=== PATIENT | male | born 1980 | race African-American/Black ===

== ENCOUNTER 2018-05-31 14:39 | Emergency (ER) | payer OTHER ==
--- NOTE | 2018-05-31 15:05 | EDM.PDOC ---
ED HPI GENERAL MEDICAL PROBLEM - General Chief Complaint: Back Pain or Injury Stated Complaint: PAIN Time Seen by Provider: 05/31/18 15:04 Source of Information: Reports: Patient History Limitations: Reports: No Limitations - History of Present Illness INITIAL COMMENTS - FREE TEXT/NARRATIVE: HISTORY AND PHYSICAL: History of present illness: Patient is a 37-year-old male here with complaint of numbness of his arms and legs. He states he injury his back about 1 year ago, he had the numbness in his arms and legs then. Recently his back has been hurting him but denies any recent injury or trauma. He states at night he will have numbness on the lateral leg and arm that he sleeps on for the past 5 days. States it goes back and forth between the left and right side depending on how he is sleeping. He does not currently have any numbness at this time. He denies any weakness, saddle anesthesia, loss of bowel or bladder control, fevers, chills. He was seeing provided in [place] for his back, has not established with provider in [place] yet. He did have an x-ray of his back when the injury occurred and patient is wanting to have an MRI done. Review of systems: As per history of present illness and below otherwise all systems reviewed and negative. Past medical history: As per history of present illness and as reviewed below otherwise noncontributory. Surgical history: As per history of present illness and as reviewed below otherwise noncontributory. Social history: No reported history of drug or alcohol abuse. Family history: As per history of present illness and as reviewed below otherwise noncontributory. Physical exam: General: Patient sitting comfortably in no acute distress and nontoxic appearing HEENT: Atraumatic, normocephalic, pupils reactive, negative for conjunctival pallor or scleral icterus, mucous membranes moist, throat clear, neck supple, nontender, trachea midline. No meningeal signs. Lungs: Clear to auscultation, breath sounds equal bilaterally, chest nontender. Heart: S1S2, regular, negative for clicks, rubs, or overt murmur. Abdomen: Soft, nondistended, nontender. Negative for masses or hepatosplenomegaly. Negative for costovertebral tenderness. Pelvis: Stable nontender. Genitourinary: Deferred. Rectal: Deferred. Spine: No vertebral tenderness or step offs to palpation. Minimal lumbar paraspinal tenderness to palpation bilaterally. Extremities: Atraumatic, negative for cords or calf pain. Neurovascular unremarkable. Neuro: Awake, alert, oriented. Cranial nerves II through XII unremarkable. Cerebellum unremarkable. Motor and sensory unremarkable throughout. Exam nonfocal. Notes: Discussed that lumbar MRI is not necessary at this time in the ED and to follow up with primary care provider. We also discussed that a head CT would not be necessary as his numbness is not unilateral and it comes and goes depending on which side he sleeps on and is not currently having any numbness which would not be a typical presentation of brain lesion. He was advised to return if he develops new or worsening symptoms. Diagnostics: None Therapeutics: None Prescriptions: None Impression: Paresthesias Plan: 1. Motrin or tylenol as needed for back pain 2. Follow up with primary care provider, please call number provided to schedule an appointment 3. Return to ED as needed as discussed Definitive disposition and diagnosis as appropriate pending reevaluation and review of above. Lower Back Pain Score (Numeric/FACES): 5 - Related Data Allergies Allergy/AdvReac Type Severity Reaction Status Date / Time No Known Allergies Allergy Verified 05/31/18 14:54 Home Meds: Home Meds . [No Known Home Meds] 05/31/18 [History] Past Medical History - Past Health History Medical/Surgical History: Denies Medical/Surgical History Social & Family History - Tobacco Use Smoking Status *Q: Never Smoker - Caffeine Use Caffeine Use: Reports: None - Recreational Drug Use Recreational Drug Use: No ED ROS GENERAL - Review of Systems Review Of Systems: ROS reveals no pertinent complaints other than HPI. ED EXAM,LOWER BACK PAIN/INJURY - Physical Exam Exam: See Below (see dictation) Course - Vital Signs Last Recorded V/S: Last Vital Signs Temp 98.1 F 05/31/18 14:50 Pulse 92 05/31/18 14:50 Resp 18 05/31/18 14:50 BP 103/70 05/31/18 14:50 Pulse Ox 98 05/31/18 14:50 Departure - Departure Time of Disposition: 15:06 Disposition: Home, Self-Care 01 Condition: Good Clinical Impression: Paresthesia, Lumbar back pain - Discharge Information Referrals: PCP,None [Primary Care Provider] - Forms: ED Department Discharge Additional Instructions: The following information is given to patients seen in the emergency department who are being discharged to home. This information is to outline your options for follow-up care. We provide all patients seen in our emergency department with a follow-up referral. The need for follow-up, as well as the timing and circumstances, are variable depending upon the specifics of your emergency department visit. If you don't have a primary care physician on staff, we will provide you with a referral. We always advise you to contact your personal physician following an emergency department visit to inform them of the circumstance of the visit and for follow-up with them and/or the need for any referrals to a consulting specialist. The emergency department will also refer you to a specialist when appropriate. This referral assures that you have the opportunity for follow-up care with a specialist. All of these measure are taken in an effort to provide you with optimal care, which includes your follow-up. Under all circumstances we always encourage you to contact your private physician who remains a resource for coordinating your care. When calling for follow-up care, please make the office aware that this follow-up is from your recent emergency room visit. If for any reason you are refused follow-up, please contact the [facility] Emergency Department at and asked to speak to the emergency department charge nurse. [facility] [address] [place] [id number] [address] [address] 1. Motrin or tylenol as needed for back pain 2. Follow up with primary care provider, please call number provided to schedule an appointment 3. Return to ED as needed as discussed
== END 2018-05-31 15:19 | disposition home or self-care (01) ==
LOC: MW.ED 14:39
DX: M54.5 Low back pain (principal); R20.2 Paresthesia of skin
CPT/HCPCS: 99282; 99283

== ENCOUNTER 2018-09-22 11:30 | Emergency (ER) | payer SELFPAY ==
[2018-09-22] MEDS ORDERED: Sodium Chloride 0.9% 1,000 ML IV ONE (11:40)
[2018-09-22] MEDS ORDERED: Pantoprazole 40 MG Vial IVPUSH ONE (11:41)
[2018-09-22] MEDS ORDERED: Ondansetron 4 MG/2 ML SDV IVPUSH ONE (11:41)
[2018-09-22] MEDS ORDERED: Ketorolac 30 MG/ML SDV IVPUSH ONE (11:41)
--- NOTE | 2018-09-22 11:41 | EDM.PDOC ---
ED HPI GENERAL MEDICAL PROBLEM - General Chief Complaint: Abdominal Pain Stated Complaint: STOMACH PAIN Time Seen by Provider: 09/22/18 11:40 Source of Information: Reports: Patient - History of Present Illness INITIAL COMMENTS - FREE TEXT/NARRATIVE: HISTORY AND PHYSICAL: History of present illness: [Patient has had low-grade 3 out of 10 nonradiating diffuse abdominal pain bloating sensation over the last 2-3 weeks no fever vomiting chills sweats mild nausea occasionally pain increases with any type of food intake ] Review of systems: As per history of present illness and below otherwise all systems reviewed and negative. Past medical history: As per history of present illness and as reviewed below otherwise noncontributory. Surgical history: As per history of present illness and as reviewed below otherwise noncontributory. Social history: No reported history of drug or alcohol abuse. Family history: As per history of present illness and as reviewed below otherwise noncontributory. Physical exam: HEENT: Atraumatic, normocephalic, pupils reactive, negative for conjunctival pallor or scleral icterus, mucous membranes moist, throat clear, neck supple, nontender, trachea midline. Lungs: Clear to auscultation, breath sounds equal bilaterally, chest nontender. Heart: S1S2, regular, negative for clicks, rubs, or JVD. Abdomen: Soft, nondistended, nontender. Negative for masses or hepatosplenomegaly. Negative for costovertebral tenderness. Pelvis: Stable nontender. Genitourinary: Deferred. Rectal: Deferred. Extremities: Atraumatic, negative for cords or calf pain. Neurovascular unremarkable. Neuro: Awake, alert, oriented. Cranial nerves II through XII unremarkable. Cerebellum unremarkable. Motor and sensory unremarkable throughout. Exam nonfocal. Diagnostics: [CBC CMP and lipase UA ]Ultrasound right upper quadrant Abdomen flat and upright Therapeutics: [Normal saline Zofran Toradol Reglan [place] diet Regular Simethicone Follow-up with general surgery consider HIDA sc ] Impression: [ abdominal pain ] Definitive disposition and diagnosis as appropriate pending reevaluation and review of above. upper abd Pain Score (Numeric/FACES): 8 - Related Data Allergies Allergy/AdvReac Type Severity Reaction Status Date / Time No Known Allergies Allergy Verified 09/22/18 11:39 Home Meds: Home Meds . [No Known Home Meds] 05/31/18 [History] Past Medical History - Past Health History Medical/Surgical History: Denies Medical/Surgical History Social & Family History - Caffeine Use Caffeine Use: Reports: None ED ROS GENERAL - Review of Systems Review Of Systems: See Below ED EXAM, GENERAL - Physical Exam Exam: See Below Course - Vital Signs Last Recorded V/S: Last Vital Signs Temp 97.6 F 09/22/18 11:39 Pulse 83 09/22/18 11:39 Resp 18 09/22/18 11:39 BP 116/73 09/22/18 11:39 Pulse Ox 98 09/22/18 11:39 - Orders/Labs/Meds Labs: Laboratory Tests 09/22/18 09/22/18 09/22/18 Range/Units 11:50 11:51 11:51 WBC 6.93 (4.0-11.0) K/uL RBC 4.93 (4.50-5.90) M/uL Hgb 14.0 (13.0-17.0) g/dL Hct 41.3 (38.0-50.0) % MCV 83.8 (80.0-98.0) fL MCH 28.4 (27.0-32.0) pg MCHC 33.9 (31.0-37.0) g/dL RDW Std Deviation 38.9 (28.0-62.0) fl RDW Coeff of Samia 13 (11.0-15.0) % Plt Count 226 (150-400) K/uL MPV 10.00 (7.40-12.00) fL Neut % (Auto) 42.8 L (48.0-80.0) % Lymph % (Auto) 39.7 (16.0-40.0) % [place] % (Auto) 8.5 (0.0-15.0) % Eos % (Auto) 8.9 H (0.0-7.0) % Baso % (Auto) 0.1 (0.0-1.5) % Neut # (Auto) 3.0 (1.4-5.7) K/uL Lymph # (Auto) 2.8 H (0.6-2.4) K/uL [place] # (Auto) 0.6 (0.0-0.8) K/uL Eos # (Auto) 0.6 (0.0-0.7) K/uL Baso # (Auto) 0.0 (0.0-0.1) K/uL Nucleated RBC % 0.0 /100WBC Nucleated RBCs # 0 K/uL Sodium 140 (136-148) mmol/L Potassium 4.1 (3.5-5.1) mmol/L Chloride 105 (98-107) mmol/L Carbon Dioxide 26.0 (21.0-32.0) mmol/L BUN 9 (7.0-18.0) mg/dL Creatinine 1.0 (0.8-1.3) mg/dL Est Cr Clr Drug Dosing TNP Estimated GFR (MDRD) > 60.0 ml/min Glucose 101 (74-106) mg/dL Calcium 9.5 (8.5-10.1) mg/dL Total Bilirubin 0.9 (0.2-1.0) mg/dL AST 72 H (15-37) IU/L ALT 196 H (14-63) IU/L Alkaline Phosphatase 541 H (46-116) U/L Total Protein 7.8 (6.4-8.2) g/dL Albumin 3.3 L (3.4-5.0) g/dL Globulin 4.5 H (2.6-4.0) g/dL Albumin/Globulin Ratio 0.7 L (0.9-1.6) Lipase 96 (73-393) U/L Urine Color YELLOW Urine Appearance CLEAR Urine pH 7.0 (5.0-8.0) Ur Specific [place] 1.010 (1.001-1.035) Urine Protein NEGATIVE (NEGATIVE) mg/dL Urine Glucose (UA) NEGATIVE (NEGATIVE) mg/dL Urine Ketones NEGATIVE (NEGATIVE) mg/dL Urine Occult Blood NEGATIVE (NEGATIVE) Urine Nitrite NEGATIVE (NEGATIVE) Urine Bilirubin NEGATIVE (NEGATIVE) Urine Urobilinogen 0.2 (<2.0) EU/dL Ur Leukocyte Esterase NEGATIVE (NEGATIVE) Meds: Medications Discontinued Medications Generic Name Dose Route Start Last Admin Trade Name Freq PRN Reason Stop Dose Admin Sodium Chloride 1,000 mls @ 999 mls/hr 09/22/18 11:40 09/22/18 11:59 Normal Saline IV 09/22/18 12:40 999 mls/hr STAT ONE Administration Sodium Chloride Confirm 09/22/18 11:51 Normal Saline Administered 09/22/18 11:52 Dose 20 mls @ as directed .ROUTE .STK-MED ONE Ketorolac Tromethamine 30 mg 09/22/18 11:41 09/22/18 12:02 Toradol IVPUSH 09/22/18 11:42 30 mg ONETIME ONE Administration Metoclopramide HCl 10 mg 09/22/18 12:53 Reglan IV 09/22/18 12:54 ONETIME ONE Ondansetron HCl 8 mg 09/22/18 11:41 09/22/18 12:01 Zofran IVPUSH 09/22/18 11:42 8 mg ONETIME ONE Administration Pantoprazole Sodium 80 mg 09/22/18 11:41 09/22/18 12:02 Protonix Iv IVPUSH 09/22/18 11:42 80 mg .BOLUS ONE Administration Simethicone 160 mg 09/22/18 12:53 Simethicone PO 09/22/18 12:54 ONETIME ONE Departure - Departure Time of Disposition: 12:56 Disposition: Home, Self-Care 01 Condition: Good Clinical Impression: Abdominal pain - Discharge Information Referrals: PCP,Unknown [Primary Care Provider] - Forms: ED Department Discharge Additional Instructions: Medication as prescribed Return if symptoms persist or worsen Follow-up with general surgery, call phone number below to schedule appropriate follow-up for consideration of HIDA navya [facility] - General Surgery [address], [address] [place] [address] The following information is given to patients seen in the emergency department who are being discharged to home. This information is to outline your options for follow-up care. We provide all patients seen in our emergency department with a follow-up referral. The need for follow-up, as well as the timing and circumstances, are variable depending upon the specifics of your emergency department visit. If you don't have a primary care physician on staff, we will provide you with a referral. We always advise you to contact your personal physician following an emergency department visit to inform them of the circumstance of the visit and for follow-up with them and/or the need for any referrals to a consulting specialist. The emergency department will also refer you to a specialist when appropriate. This referral assures that you have the opportunity for follow-up care with a specialist. All of these measure are taken in an effort to provide you with optimal care, which includes your follow-up. Under all circumstances we always encourage you to contact your private physician who remains a resource for coordinating your care. When calling for follow-up care, please make the office aware that this follow-up is from your recent emergency room visit. If for any reason you are refused follow-up, please contact the [facility] emergency department at and asked to speak to the emergency department charge nurse.
[2018-09-22] MEDS ORDERED: Sodium Chloride 0.9% 20 ML ONE (11:51)
[2018-09-22 12:25] LABS: CHLORIDE,CL 105 mmol/L (98-107); SODIUM,NA 140 mmol/L (136-148)
--- NOTE | 2018-09-22 12:49 | US ---
EXAMINATION: Right upper quadrant ultrasound HISTORY: Pain COMPARISON: None TECHNIQUE: Grayscale and color Doppler imaging obtained of the right upper quadrant. FINDINGS: The visualized pancreas appears normal. The liver is normal in contour and echotexture without a focal hepatic mass. The main portal triads appear echogenic. The gallbladder wall thickness is normal. No pericholecystic fluid or shadowing gallstones. Common bile duct is not well characterized. Right kidney measures at least 8.8 cm [id number] without evidence of hydronephrosis. IMPRESSION: 1. Common bile duct is not well characterized. 2. There is shadowing within the region of the central biliary tracks, this can be seen with pneumobilia.
--- NOTE | 2018-09-22 12:50 | CR ---
EXAMINATION: Abdomen HISTORY: Pain COMPARISON: None TECHNIQUE: AP and upright views FINDINGS: There is no free air under the diaphragm. There is a nonobstructive bowel gas pattern. No organomegaly or abnormal calcifications. Visualized osseous structures appear normal. IMPRESSION: Unremarkable abdominal films.
[2018-09-22] MEDS ORDERED: Metoclopramide 10 MG/2 ML SDV IV ONE (12:53)
[2018-09-22] MEDS ORDERED: Simethicone 80 MG Tab.Chew PO ONE (12:53)
== END 2018-09-22 13:52 | disposition home or self-care (01) ==
LOC: MW.ED 11:30
DX: R10.10 Upper abdominal pain, unspecified (principal)
CPT/HCPCS: 36415; 74019; 76705; 80053; 81003; 83690; 85025; 96361; 96374; 96375; 99284; A9270; C9113; J1885; J2405; J2765; J7040

== ENCOUNTER 2018-10-02 08:27 | Observation (INO) | payer SELFPAY ==
[2018-10-02] MEDS ORDERED: Ketorolac 30 MG/ML SDV IVPUSH ONE (08:58)
[2018-10-02] MEDS ORDERED: Sodium Chloride 0.9% 1,000 ML IV ONE (08:58)
[2018-10-02] MEDS ORDERED: Ondansetron 4 MG/2 ML SDV IVPUSH ONE (08:58)
[2018-10-02 09:21] LABS: CHLORIDE,CL 102 mmol/L (98-107); SODIUM,NA 137 mmol/L (136-148)
[2018-10-02] MEDS ORDERED: Pantoprazole 40 MG Vial IVPUSH ONE (10:07)
[2018-10-02] MEDS ORDERED: Water For Injection, Sterile 20 ML ONE (10:11)
[2018-10-02] MEDS ORDERED: Sodium Chloride 0.9% 1,000 ML IV SCH (10:15)
--- NOTE | 2018-10-02 11:59 | US ---
INDICATION: Abdominal pain COMPARISON: none TECHNIQUE: 2D castillo scale imaging and color Doppler analysis was performed of the right upper quadrant. FINDINGS: The gallbladder appears of normal size. There is a trace amount of sludge within the gallbladder neck. There is no evidence of edema within the gallbladder wall. The gallbladder wall measures 3 mm in thickness. The common bile duct is poorly visualized. There is a oval cystic structure within the saray hepatis. I wonder if the patient has a possible choledochal cyst. Within the liver there is acoustic shadowing associated with the bile ducts which suggests probable pneumobilia. The right kidney measures 9.3 cm in length. There is no evidence of a stone or hydronephrosis within the right kidney. IMPRESSION: No indeterminate cystic structure within the saray hepatis which may indicate a choledochal cyst. There is also shadowing within the portal triads of the liver suggesting pneumobilia. These changes could be characterized further with a MRCP exam or contrast enhanced CT scan of the liver. Dictated by Anselmo Patrick MD @ Oct 02 2018 11:57AM Signed by Dr. Anselmo Patrick @ Oct 02 2018 11:57AM
--- NOTE | 2018-10-02 12:48 | EDM.PDOC ---
ED HPI GENERAL MEDICAL PROBLEM - General Chief Complaint: Abdominal Pain Stated Complaint: PAIN IN CHEST AND SIDE Time Seen by Provider: 10/02/18 12:46 Source of Information: Reports: Patient - History of Present Illness INITIAL COMMENTS - FREE TEXT/NARRATIVE: HISTORY AND PHYSICAL: History of present illness: []Pt presents with right upper quadrant pain He is been in previously with ultrasound and CT ultimately receiving HIDA scan with Dr. Levin, or truly HIDA scan did not reveal any answers hence I have consult of Dr. Hylton who is on-call today he has recommended repeat ultrasound and possibly MRCP No fever nausea vomiting chills sw eats Review of systems: As per history of present illness and below otherwise all systems reviewed and negative. Past medical history: As per history of present illness and as reviewed below otherwise noncontributory. Surgical history: As per history of present illness and as reviewed below otherwise noncontributory. Social history: No reported history of drug or alcohol abuse. Family history: As per history of present illness and as reviewed below otherwise noncontributory. Physical exam: HEENT: Atraumatic, normocephalic, pupils reactive, negative for conjunctival pallor or scleral icterus, mucous membranes moist, throat clear, neck supple, nontender, trachea midline. Lungs: Clear to auscultation, breath sounds equal bilaterally, chest nontender. Heart: S1S2, regular, negative for clicks, rubs, or JVD. Abdomen: Soft, nondistended, nontender. Negative for masses or hepatosplenomegaly. Negative for costovertebral tenderness. Pelvis: Stable nontender. Genitourinary: Deferred. Rectal: Deferred. Extremities: Atraumatic, negative for cords or calf pain. Neurovascular unremarkable. Neuro: Awake, alert, oriented. Cranial nerves II through XII unremarkable. Cerebellum unremarkable. Motor and sensory unremarkable throughout. Exam nonfocal. Diagnostics: [CBC CMP lipase ] Therapeutics: [ also saline Zofran Toradol ] Impression: [ right upper quadrant pain ] Definitive disposition and diagnosis as appropriate pending reevaluation and review of above. Upper Abdominal Pain Score (Numeric/FACES): 10 - Related Data Allergies Allergy/AdvReac Type Severity Reaction Status Date / Time No Known Allergies Allergy Verified 10/02/18 08:35 Home Meds: Home Meds Metoclopramide HCl [Reglan] 10 mg PO TID PRN 10/02/18 [History] Simethicone [Gas Relief] 120 mg PO QID PRN 10/02/18 [History] Past Medical History - Past Health History Medical/Surgical History: Denies Medical/Surgical History - Infectious Disease History Infectious Disease History: Reports: None Social & Family History - Family History Family Medical History: Noncontributory - Tobacco Use Smoking Status *Q: Never Smoker - Caffeine Use Caffeine Use: Reports: None - Recreational Drug Use Recreational Drug Use: No ED ROS GENERAL - Review of Systems Review Of Systems: See Below ED EXAM, GENERAL - Physical Exam Exam: See Below Course - Vital Signs Last Recorded V/S: Last Vital Signs Temp 98.9 F 10/02/18 08:36 Pulse 101 H 10/02/18 11:27 Resp 16 10/02/18 11:27 BP 100/63 10/02/18 11:27 Pulse Ox 97 10/02/18 11:27 - Orders/Labs/Meds Orders: Active Orders 24 hr Category Date Time Status Abdomen wo Cont [MR] Stat Exams 10/02/18 12:29 Ordered Sodium Chloride 0.9% [Normal Saline] 1,000 ml Med 10/02/18 10:15 Active IV STAT Medication Orders Sodium Chloride (Normal Saline) 1,000 mls @ 125 mls/hr IV STAT ROSSY Last Admin: 10/02/18 10:18 Dose: 125 mls/hr Labs: Laboratory Tests 10/02/18 10/02/18 10/02/18 Range/Units 08:38 08:38 08:38 WBC 11.49 H (4.0-11.0) K/uL RBC 4.94 (4.50-5.90) M/uL Hgb 14.0 (13.0-17.0) g/dL Hct 41.4 (38.0-50.0) % MCV 83.8 (80.0-98.0) fL MCH 28.3 (27.0-32.0) pg MCHC 33.8 (31.0-37.0) g/dL RDW Std Deviation 38.1 (28.0-62.0) fl RDW Coeff of Samia 13 (11.0-15.0) % Plt Count 230 (150-400) K/uL MPV 10.60 (7.40-12.00) fL Neut % (Auto) 86.3 H (48.0-80.0) % Lymph % (Auto) 7.6 L (16.0-40.0) % [place] % (Auto) 1.7 (0.0-15.0) % Eos % (Auto) 4.3 (0.0-7.0) % Baso % (Auto) 0.1 (0.0-1.5) % Neut # (Auto) 9.9 H (1.4-5.7) K/uL Lymph # (Auto) 0.9 (0.6-2.4) K/uL [place] # (Auto) 0.2 (0.0-0.8) K/uL Eos # (Auto) 0.5 (0.0-0.7) K/uL Baso # (Auto) 0.0 (0.0-0.1) K/uL Nucleated RBC % 0.0 /100WBC Nucleated RBCs # 0 K/uL Sodium 137 (136-148) mmol/L Potassium 3.7 (3.5-5.1) mmol/L Chloride 102 (98-107) mmol/L Carbon Dioxide 27.4 (21.0-32.0) mmol/L BUN 15 (7.0-18.0) mg/dL Creatinine 1.0 (0.8-1.3) mg/dL Est Cr Clr Drug Dosing TNP Estimated GFR (MDRD) > 60.0 ml/min Glucose 96 (74-106) mg/dL Calcium 9.6 (8.5-10.1) mg/dL Total Bilirubin 2.5 H (0.2-1.0) mg/dL AST 171 H (15-37) IU/L ALT 226 H (14-63) IU/L Alkaline Phosphatase 824 H (46-116) U/L Total Protein 8.7 H (6.4-8.2) g/dL Albumin 4.0 (3.4-5.0) g/dL Globulin 4.7 H (2.6-4.0) g/dL Albumin/Globulin Ratio 0.9 (0.9-1.6) Lipase 93 (73-393) U/L Meds: Medications Generic Name Dose Route Start Last Admin Trade Name Freq PRN Reason Stop Dose Admin Sodium Chloride 1,000 mls @ 125 mls/hr 10/02/18 10:15 10/02/18 10:18 Normal Saline IV 125 mls/hr STAT ROSSY Administration Discontinued Medications Generic Name Dose Route Start Last Admin Trade Name Adriana PRN Reason Stop Dose Admin Sodium Chloride 1,000 mls @ 999 mls/hr 10/02/18 08:58 10/02/18 09:08 Normal Saline IV 10/02/18 09:58 999 mls/hr STAT ONE Administration Sterile Water Confirm 10/02/18 10:11 10/02/18 10:18 Sterile Water For Injection Administered 10/02/18 10:12 20 mls/hr Dose Administration 20 mls @ as directed .ROUTE .STK-MED ONE Ketorolac Tromethamine 30 mg 10/02/18 08:58 10/02/18 09:08 Toradol IVPUSH 10/02/18 08:59 30 mg ONETIME ONE Administration Ondansetron HCl 8 mg 10/02/18 08:58 10/02/18 09:08 Zofran IVPUSH 10/02/18 08:59 8 mg ONETIME ONE Administration Pantoprazole Sodium 80 mg 10/02/18 10:07 10/02/18 10:18 Protonix Iv IVPUSH 10/02/18 10:08 80 mg .BOLUS ONE Administration Departure - Departure Time of Disposition: 12:48 Disposition: Refer to Observation Condition: Fair Clinical Impression: Abdominal pain - Discharge Information Referrals: PCP,None [Primary Care Provider] - - My Orders Last 24 Hours: My Active Orders 10/02/18 10:15 Sodium Chloride 0.9% [Normal Saline] 1,000 ml IV STAT - Assessment/Plan Last 24 Hours: My Active Orders 10/02/18 10:15 Sodium Chloride 0.9% [Normal Saline] 1,000 ml IV STAT
--- NOTE | 2018-10-02 14:32 | PCM.SN ---
- Free Text/Narrative Note: pt seen, chart reviewed; abd pain, await MRCP studies; [id number]
[2018-10-02] MEDS ORDERED: Acetaminophen/oxyCODONE 325-5 MG Tab PO PRN (15:08)
--- NOTE | 2018-10-02 15:35 | MR ---
INDICATION: Abdominal pain. TECHNIQUE: An MRCP, including 2D, 3D and maximum intensity projection imaging, was performed. COMPARISON: Today`s abdominal ultrasound and the nuclear medicine hepatobiliary scan of 09/23/2018. FINDINGS: Innumerable large stones are present throughout the biliary system, excluding the gallbladder. The ducts are enlarged secondary to these stones. The appearance is consistent with recurrent pyogenic cholangitis. The gallbladder is distended but not technically hydropic. The pancreatic duct is normal. Trace ascites is noted. The liver is normal in size, shape and signal. The spleen, pancreas, adrenal glands and kidneys are within normal limits. No bowel abnormality or lymphadenopathy is demonstrated. IMPRESSION: 1. Recurrent pyogenic cholangitis. 2. Trace ascites. Dictated by Nabeel Amos MD @ Oct 02 2018 3:23PM Signed by Dr. Nabeel Amos @ Oct 02 2018 3:34PM
--- NOTE | 2018-10-02 17:39 | PCM.SN ---
- Free Text/Narrative Note: mrcp > cbd packed with stones, hammad Vee at [place], Dr. Lima/GI accepted transfer; dc summary dictated, [id number]
--- NOTE | 2018-10-02 21:38 | CONS ---
DATE OF CONSULTATION: 10/02/2018 DATE OF : 1980 PRIMARY CARE PHYSICIAN: None PCP This is a consult from Dr. Terry in the emergency room for abdominal pain. HISTORY OF PRESENT ILLNESS: The patient is a 37-year-old gentleman, complained of 1 or 2- week history of right upper quadrant pain, radiated to the back and workup at that time included an ultrasound and ultrasound done on the for possible pneumobilia and common bile duct is not well visualized. The patient subsequently has HIDA scan done and HIDA scan reading as abnormal uptake, may suggest the degree of hepatic dysfunction. No significant ejection following CCK administration that was September 23 and 10 days later, the patient was seen in the emergency room with similar complaint. The patient remarked that the pain is a 9 on the pain scale; however, the patient is able to move around in and out of the stretcher, looked relatively comfortable. Denied fever, chill, or diarrhea. PAST MEDICAL HISTORY: Denied diabetes, NC, CVA, hypertension. PAST SURGICAL HISTORY: Denied any abdominal surgery. HOME MEDICATIONS: Please refer to nursing for details. ALLERGIES: Please refer to nursing for details. PHYSICAL EXAMINATION: GENERAL: A very pleasant nice gentleman, in no acute distress. HEENT: Normocephalic and atraumatic. Sclerae are anicteric. LUNGS: Clear to auscultation. HEART: Regular rate and rhythm. ABDOMEN: Soft, nondistended. No pulsating tender midline abdominal structure. Mild tenderness on the right lower quadrant. No rebound tenderness. LABORATORY DATA: Upon consultation, white count is 11.5, H and H are 14 and 41, and platelet is 230. Potassium is 3.7, BUN is 15, and creatinine is 1.0. Total bilirubin is 2.5, up from 0.9 ten days ago. AST and ALT are elevated at 171 and 226. Alkaline phosphatase is also elevated at 824. Lipase is normal at 93. Repeat ultrasound today still failed to see the common bile duct and suspect either choledochal cyst or pneumoperitoneum and recommend MRCP. IMPRESSION: Abdominal pain, elevated total bilirubin, and ultrasounds continued to show either choledochal cyst or pneumobilia. We will recommend to proceed with MRCP or eventually an ERCP and the patient is on the test now and we will reassess after the MRCP and the patient will likely admit for pain management and antibiotic management and if indicated, we will recommend gallbladder surgery 1 or 2 weeks from now. NOEL / BRENNA /[id number]
--- NOTE | 2018-10-02 23:55 | DISCH ---
DATE OF DISCHARGE: 10/02/2018 PRIMARY CARE PHYSICIAN: Karthik PCP ADMISSION DIAGNOSIS: Abdominal pain. DISCHARGE DIAGNOSIS: Common bile duct stone. Please refer to the admission history and physical for details. In summary, the patient presented with a several-day history of abdominal pain, rated as 10/10 and seen today in the emergency room and had ultrasound on which common bile duct is not visualized. Subsequently followed up with MRCP, revealed large amount of common bile duct stone. The patient would benefit from ERCP at higher facility care and plan has been discussed with the patient. Patient agreed and proceeded with transfer. Discussed /TRACY/Mariusz Loera agreed to accept the patient. Upon transfer, the patient is hemodynamically stable and pain is well controlled with Percocet. LABORATORY DATA: White count is 11.49. NOEL / BRENNA /[id number] MTDD
== END 2018-10-02 18:55 ==
LOC: MW.ED 08:27 → MW.MS 13:22
PROVIDERS: ADMIT Surgery; ATTEND Surgery
DX: K80.30 Calculus of bile duct with cholangitis, unspecified, without obstruction (principal); R18.8 Other ascites
CPT/HCPCS: 36415; 74181; 76705; 80053; 83690; 85025; 96361; 96374; 96375; 99285; A9270; C9113; G0378; J1885; J2405; J7040; 99284